=== PATIENT | male | born 1940 | race Caucasian/White ===

== ENCOUNTER 2023-12-20 11:20 | Emergency (ER) | payer OTHER, SELFPAY ==
--- NOTE | ~2023-12-20 | CT_ITS ---
EXAMINATION: CT abdomen pelvis wo con DATE: 12/20/2023 17:40 INDICATION: Left flank pain. TECHNIQUE: Computed tomography (CT) of the abdomen and pelvis was performed without intravenous contr ast. Automated exposure control and iterative reconstruction technique were employed. The dose-length product was 264.36 mGy-cm. COMPARISON: None. FINDINGS: The visualized portions of the lung bases demonstrate mild atelectasis. No pleural effusion . The heart size is normal. There are coronary artery calcifications. No pericardial effusion. The li joseph and spleen are normal. There are gallstones in the gallbladder, which is normal in size. The panc reas is normal. There is a 1 mm stone in right kidney. There is mild left hydronephrosis and hydroure ter. There is a 3 mm stone at left ureterovesicular junction. The prostate is severely enlarged. Ther e is diverticulosis of the colon without evidence of diverticulitis. There are no dilated loops of skinny wel. The appendix is not visualized. The rectosigmoid is mildly distended and stool-filled. There are no pathologically enlarged lymph nodes. There is no free intraperitoneal fluid. There is 6 mm lilliam listhesis of L4 and L5. There is severe lumbar spondylosis. IMPRESSION: 1. 3 mm stone at left ureterovesicular junction with mild left hydronephrosis and hydroureter. 2. 1 mm nonobstructing right kidney stone. Reviewed, dictated and finalized at location E. OL COORDINATOR IMPRESSION: 1. 3 mm stone at left ureterovesicular junction with mild left hydronephrosis a nd hydroureter. 2. 1 mm nonobstructing right kidney stone.
[2023-12-20 11:21] VITALS: BP 118/69; PULSE 70; RESP 18; TEMP 36.6; O2SAT 97
[2023-12-20 15:41] VITALS: BP 121/76; PULSE 73; RESP 18; O2SAT 98
[2023-12-20 16:13] LABS: Basophils Percent Auto 0.5 % (0.2-1.2); Eosinophils Absolute Auto 0.1 K/mm3 (0-0.3); Eosinophils Percent Auto 0.8 % (0-4.4); Hemoglobin 13.9 g/dL (14.0-18.0); Immature Granulocyte Absolute 0.03 K/mm3 (0.00-0.031); Immature Granulocyte Percent A 0.4 % (0-0.5); Lymphocytes Absolute Auto 1.77 K/mm3 (0.9-3.2); Lymphocytes Percent Auto 22.5 % (18.3-44.2); Mean Corpuscular HGB Conc 33.1 g/dl (32-36); Mean Corpuscular Volume 99.8 fl (80-100); Mean Platelet Volume 9.4 fl (7.4-10.4); Monocytes Absolute Auto 0.9 K/mm3 (0.1-0.6); Monocytes Percent Auto 11.7 % (2.6-8.5); Neutrophils Absolute Auto 5.1 K/mm3 (1.3-6.7); Neutrophils Percent Auto 64.1 % (45.5-73.1); Platelet Count Result 232 k/mm3 (150-375); Red Blood Count 4.21 M/mm3 (4.6-6.20); Red Cell Distribution Width 12.8 % (11.5-14.5); White Blood Count 7.9 K/mm3 (4.5-10.0)
[2023-12-20 16:24] LABS: Alanine Aminotransferase 17 U/L (6-50); Albumin Level 4.4 g/dL (3.5-5.1); Alkaline Phosphatase 89 U/L (38-126); Anion Gap 7 mmol/L (8-16); Aspartate Amino Transferase 24 U/L (17-59); Blood Urea Nitrogen 39 mg/dL (9-20); Calcium 9.3 mg/dL (8.4-10.2); Carbon Dioxide 28 mmol/L (22-30); Chloride 106 mmol/L (98-107); Estimated CRCL calculation 31 ml/min; Estimated Glomerular Filt Rate 48; Glucose 108 mg/dL (65-110); Lipase 58 U/L (23-300); Potassium 4.7 mmol/L (3.4-5.0); Sodium 141 mmol/L (137-145)
[2023-12-20 16:30] VITALS: BP 117/72; PULSE 73; RESP 16; O2SAT 98
--- NOTE | 2023-12-20 16:31 | ED.ABDPAIN ---
HPI - Abdominal Pain General Chief Complaint: Abdominal Pain Stated Complaint: kidney stone Time Seen by Provider: 12/20/23 16:02 History of Present Illness HPI narrative: 83-year-old male presenting to the emergency department for evaluation of left flank pain that radiates to the left lower quadrant. Patient states symptoms started on Monday and patient does have intermittent flank pain. Patient states he does believe he past a kidney stone a few months ago. Patient does have a read from an outpatient CT scan that showed a 3 mm calculus in the left kidney. At time of evaluation patient did have tenderness to his left CVA but patient declined any medications for pain control. Patient did have a colonoscopy and has no prior history of diverticular disease. Related Data Home Medications Medication Instructions Recorded Confirmed ciprofloxacin HCl 500 mg tablet mg 12/20/23 12/20/23 emtricitabine 200 mg-rilpivirine tablet PO 12/20/23 25 mg-tenofovir alafenam 25 mg tablet (Nitinsey) lisinopril 10 mg tablet mg 12/20/23 lovastatin 10 mg tablet mg 12/20/23 oxybutynin chloride 5 mg mg PO 12/20/23 tablet,extended release 24 hr sulfamethoxazole 800 tablet 12/20/23 mg-trimethoprim 160 mg tablet Allergies Allergy/AdvReac Type Severity Reaction Status Date / Time No Known Allergies Allergy Verified 12/20/23 18:33 Review of Systems Review of Systems: All systems reviewed & are unremarkable except as noted in HPI and below Exam Narrative: APPEARANCE: Well appearing, no pain, no distress, well-nourished. HEAD: normocephalic, atraumatic. EYES: PERRLA/EOMI, conjunctivae clear. NOSE: Normal no drainage NECK: Supple. No adenopathy, no masses. RESPIRATORY: Airway patent, respirations nonlabored. Clear to auscultation bilaterally, no rales, rhonchi, wheezing. CARDIOVASCULAR: Regular rate and rhythm without murmurs rubs or gallops. ABDOMINAL: Soft, nondistended, no left lower quadrant tenderness to palpation but did have left CVA tenderness to palpation MUSCULOSKELETAL: Moves all extremities. Strength/ROM intact, No edema, No calf tenderness. NEURO: Alert. Cranial nerves II through XII intact. Grossly intact SKIN: Warm, dry. Normal Color Course Course Emergency Course: 83-year-old male presenting to the ED for evaluation of left flank pain. Patient did have hematuria and CT scan without contrast is ordered to evaluate for kidney stone. Patient does have a 3 mm stone at the left UVJ. Patient was provided Flomax, [place] and Toradol in the emergency department. Patient will be discharged home with [place] Flomax and Zofran. Patient and family were updated on the results of the workup and plan for treatment at home and the importance of close follow-up with Urology. Patient was also updated on reasons to return to the emergency department. All questions concerns were addressed patient was well-appearing at time of discharge. Vital Signs Vital signs: Vital Signs Temperature 97.8 F 12/20/23 11:21 Pulse Rate 70 12/20/23 11:21 Respiratory Rate 18 12/20/23 11:21 Blood Pressure 118/69 12/20/23 11:21 Pulse Oximetry 97 12/20/23 11:21 Oxygen Delivery Room Air 12/20/23 11:21 Temperature 97.8 F 12/20/23 11:21 Pulse Rate 73 12/20/23 19:00 Respiratory Rate 16 12/20/23 19:00 Blood Pressure 119/67 12/20/23 19:00 Pulse Oximetry 97 12/20/23 19:00 Oxygen Delivery Room Air 12/20/23 11:21 MDM - Abdominal Pain Lab Data 12/20/23 16:05 12/20/23 16:05 Labs: Lab Results 12/20/23 12/20/23 Range/Units 16:05 16:51 WBC 7.9 (4.5-10.0) K/mm3 RBC 4.21 L (4.6-6.20) M/mm3 Hgb 13.9 L (14.0-18.0) g/dL Hct 42.0 (42.0-52.0) % MCV 99.8 (80-100) fl MCH 33.0 (26-34) pg MCHC 33.1 (32-36) g/dl RDW 12.8 (11.5-14.5) % Plt Count 232 (150-375) k/mm3 MPV 9.4 (7.4-10.4) fl Immature Gran % (Auto) 0.4 (0-0.5) % Neut % (Auto)
[2023-12-20 17:10] LABS: Appearance Urine Clear (Clear); Bacteria Urine None Seen /hpf; Bilirubin Urine Negative (Negative); Blood Urine 1+ (Negative); Color Urine Yellow (Yellow); Glucose Urine UA Negative (Negative); Ketones Urine Negative (Negative); Leukocyte Esterase Ur 1+ LEU/UL (Negative); Nitrate Urine Negative (Negative); Non Pathogenic Casts 0-2; Protein Urine 1+ mg/dL (Negative); RBC Urine 21-50 /hpf (0-2); Specific Grav Ur 1.023 (1.001-1.035); Squamous Epithelial Cell Urine None seen /hpf (Few); Urobilinogen Urine 0.2 mg/dL (<2.0)
[2023-12-20 17:17] LABS: Add Urine Microscopic? YES
[2023-12-20 17:30] VITALS: BP 108/69; PULSE 74; RESP 20; O2SAT 97
[2023-12-20 18:30] VITALS: BP 116/69; PULSE 78; RESP 16; O2SAT 97
[2023-12-20] MEDS: KETOROLAC 15 MG/ML VIAL (*BKC) IV PUSH (18:38)
[2023-12-20] MEDS: HYDROcodone/acetaminophen (*CRX) 5-325 MG TABLET 1 TAB PO (18:38)
[2023-12-20] MEDS: TAMSULOSIN HCL 0.4 MG CAPSULE PO (18:39)
[2023-12-20 19:00] VITALS: BP 119/67; PULSE 73; RESP 16; O2SAT 97
== END 2023-12-20 19:00 | disposition home or self-care (01) ==
PROVIDERS: Emergency Provider Emergency Medicine; PCP Family Medicine
DX: N20.1 Calculus of ureter (principal)
CPT/HCPCS: 36415; 74176; 80053; 81001; 83690; 85025; 87086; 96374; 99284; A9270; J1885

== ENCOUNTER 2024-03-21 10:26 | Emergency (ER) | payer MEDICARE, SELFPAY ==
--- NOTE | 2024-03-21 10:29 | ED.MALEGU ---
HPI - Male Genitourinary General Chief complaint: Urogenital-Male Stated complaint: urinary issue Time Seen by Provider: 03/21/24 11:05 Source: patient and RN notes reviewed Mode of arrival: ambulatory Limitations: no limitations History of Present Illness HPI Narrative: 83-year-old male presents with concern for suprapubic pressure. Reports he was treated for a urinary tract infection recently, reports his symptoms improved but did not resolve. He is not aware that they cultured his previous urine. He reports he had chills yesterday. He reports occasional difficulty with getting a urine strain started. Reports history of BPH. MD Complaint: other (Suprapubic pressure) Related Data Home Medications Medication Instructions Recorded Confirmed emtricitabine 200 mg-rilpivirine 1 tablet PO DAILY 12/20/23 03/21/24 25 mg-tenofovir alafenam 25 mg tablet (Brandon) lisinopril 10 mg tablet 10 mg PO DAILY 12/20/23 03/21/24 lovastatin 10 mg tablet 10 mg PO DAILY 12/20/23 03/21/24 oxybutynin chloride 5 mg 5 mg PO DAILY 12/20/23 03/21/24 tablet,extended release 24 hr alfuzosin 10 mg tablet,extended 10 mg PO DAILY 03/21/24 03/21/24 release 24 hr finasteride 5 mg tablet 5 mg PO DAILY 03/21/24 03/21/24 fluticasone propionate 50 See Rx Instructions .Route .COMPLEX 03/21/24 03/21/24 mcg/actuation nasal spray,suspension Allergies Allergy/AdvReac Type Severity Reaction Status Date / Time Penicillins Allergy Intermediate Hives Verified 03/21/24 11:10 Review of Systems Review of Systems: CONSTITUTIONAL: Denies malaise, sweats, or fever. Reports chills CARDIOVASCULAR: Denies chest pain, palpitations, or edema. RESPIRATORY: Denies cough or dyspnea. GASTROINTESTINAL: Denies abdominal pain, nausea, vomiting, diarrhea GENITOURINARY: Reports suprapubic pressure, difficulty with urine stream. Denies dysuria, frequency, urgency. Denies flank pain or hematuria. SKIN: Denies rash or itching. MUSCULOSKELETAL: Denies back pain or myalgia. All systems reviewed & are unremarkable except as noted in HPI and below PMFSH Comments At time of signature, agree with nursing past medical, surgical, social and family history. There is no relevant family history pertinent to the presenting complaint Exam Narrative: GENERAL: Well-appearing, well-nourished, and in no acute distress. HEAD: Normocephalic. EYES: PERRLA, conjunctivae clear. NECK: Supple. No lymphadenopathy CHEST: Clear to auscultation. No respiratory distress. HEART: Regular rate and rhythm. ABDOMEN: Soft, suprapubic tenderness, nondistended, normal active bowel sounds, no palpable or pulsatile masses, no guarding. No CVA tenderness SKIN: Warm, dry, no rash. NEURO: Alert and oriented x3. PSYCH: Normal mood and affect Course Course Emergency Course: Discussed UA with patient, discussed treatment options including waiting for urine culture versus treating now. Through shared decision making, it was decided to treat now pending culture mainly due to the possibility that his infection might be prostate related rather than urinary tract. Patient is aware of diagnosis, understands and agrees to treatment plan. Anticipatory guidance given. Patient agrees to follow-up as directed and is aware of reasons to seek care at the emergency department. Portions of this record may have been created with voice recognition software Level of Care: Express Care Visit Vital Signs Vital signs: Reviewed. MDM - Male Genitourinary MDM Narrative Medical decision making narrative: Exam findings and UA show no acute concerns or changes; patient is non-toxic appearing and is in no distress. Patient is appropriate for outpatient treatment and follow-up. Differential Diagnosis Differential diagnosis: Likely urinary tract infection and prostatitis Critical Care Time Critical Care Time Critical Care Time: No Discharge Plan Discharge Clinical Impression: Symptoms of urinary trac
[2024-03-21 10:38] VITALS: BP 132/58; PULSE 59; RESP 16; TEMP 37.2; O2SAT 99
[2024-03-21 10:40] VITALS: BP 132/58; PULSE 59; RESP 16; TEMP 37.2; O2SAT 99
== END 2024-03-21 11:26 | disposition home or self-care (01) ==
PROVIDERS: Emergency Provider Nurse Practitioner; PCP Family Medicine
DX: R10.30 Lower abdominal pain, unspecified (principal); E78.00 Pure hypercholesterolemia, unspecified; I10 Essential (primary) hypertension; N40.0 Benign prostatic hyperplasia without lower urinary tract symptoms; Z21 Asymptomatic human immunodeficiency virus [HIV] infection status
CPT/HCPCS: 81003; 87086; 99213; G0463

== ENCOUNTER 2024-11-03 18:48 | Emergency (ER) | payer MEDICARE, SELFPAY ==
--- NOTE | ~2024-11-03 | CT_ITS ---
Non-contrast CT scan of the Abdomen and Pelvis Clinical indication: Abdominal pain Technique: 2.5 mm axial scans were obtained through the abdomen and pelvis without intravenous or or al contrast. Dose reduction technique was used on this scan by utilizing automated exposure control a nd iterative reconstruction technique. The dose-length product (DLP) was 212.67 mGy-cm. COMPARISON: 12/20/2023 Findings: Images through the lung bases reveal no abnormalities. There is no evidence of renal or ureteral calculi. The kidneys and the ureters are nondilated. The liver, spleen, pancreas, and adrenals appear normal. Small gallstones are present. There is no ao rtic aneurysm. There is no evidence of bowel obstruction. Images through the pelvis were performed. There is no evidence of ascites or lymphadenopathy. Urinary bladder unremarkable. Prostate gland is significantly enlarged. Impression: No acute abnormality. Significant prostatomegaly. Cholelithiasis. Reviewed, dictated and finalized at [facility]. GER STAR Impression: No acute abnormality. Significant prostatomegaly. Cholelithiasis.
[2024-11-03 19:05] VITALS: BP 138/62; PULSE 84; RESP 18; TEMP 36.8; O2SAT 96
[2024-11-03 21:23] VITALS: TEMP 37.7
[2024-11-03 21:53] LABS: Add Urine Microscopic? YES; Appearance Urine Cloudy (Clear); Bacteria Urine 2+ /hpf; Bilirubin Urine Negative (Negative); Blood Urine Trace (Negative); Color Urine Yellow (Yellow); Glucose Urine UA Negative (Negative); Ketones Urine Negative (Negative); Leukocyte Esterase Ur 3+ LEU/UL (Negative); Need Manual Microscopic Reviewed; Nitrate Urine Positive (Negative); Non Pathogenic Casts 0-2; Protein Urine 1+ mg/dL (Negative); RBC Urine 0-2 /hpf (0-2); Specific Grav Ur 1.025 (1.001-1.035); Squamous Epithelial Cell Urine None Seen /hpf (Few); Urobilinogen Urine 0.2 mg/dL (<2.0); WBC Urine >100 /hpf (0-3); pH Urine 5.5 (5.0-9.0)
[2024-11-03 21:55] LABS: Budding Yeast Urine Present /hpf
[2024-11-03] MEDS: ACETAMINOPHEN 500 MG TABLET 1000 MG PO (22:34)
[2024-11-03 22:41] LABS: Basophils Absolute Auto 0.1 K/mm3 (0.0-0.1); Basophils Percent Auto 0.4 % (0.2-1.2); Eosinophils Absolute Auto 0.1 K/mm3 (0-0.3); Eosinophils Percent Auto 0.4 % (0-4.4); Hematocrit 41.4 % (42.0-52.0); Hemoglobin 14.7 g/dL (14.0-18.0); Immature Granulocyte Absolute 0.03 K/mm3 (0.00-0.031); Immature Granulocyte Percent A 0.2 % (0-0.5); Lymphocytes Absolute Auto 2.45 K/mm3 (0.9-3.2); Lymphocytes Percent Auto 18.3 % (18.3-44.2); Mean Corpuscular HGB Conc 35.5 g/dl (32-36); Mean Corpuscular Hemoglobin 34.3 pg (26-34); Mean Corpuscular Volume 96.7 fl (80-100); Mean Platelet Volume 10.1 fl (7.4-10.4); Monocytes Absolute Auto 1.6 K/mm3 (0.1-0.6); Monocytes Percent Auto 11.6 % (2.6-8.5); Neutrophils Absolute Auto 9.3 K/mm3 (1.3-6.7); Neutrophils Percent Auto 69.1 % (45.5-73.1); Platelet Count Result 184 k/mm3 (150-375); Red Blood Count 4.28 M/mm3 (4.6-6.20); Red Cell Distribution Width 12.3 % (11.5-14.5); White Blood Count 13.4 K/mm3 (4.5-10.0)
[2024-11-03 22:51] LABS: Anion Gap 7 mmol/L (4-12); Blood Urea Nitrogen 21 mg/dL (9-20); Calcium 9.4 mg/dL (8.4-10.2); Carbon Dioxide 25 mmol/L (22-30); Chloride 107 mmol/L (98-107); Estimated CRCL calculation 41 ml/min; Estimated Glomerular Filt Rate > 60; Glucose 120 mg/dL (65-110); Sodium 139 mmol/L (137-145)
[2024-11-03 23:00] VITALS: TEMP 36.7
[2024-11-03 23:53] VITALS: BP 121/73; PULSE 72; RESP 18; TEMP 36.7; O2SAT 96
--- NOTE | 2024-11-04 00:05 | ED_ITS ---
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 Patient reports history of previous UTIs, history of BPH. Reports having urinary frequency/urgency since yesterday, along with a low-grade fever. Reports having some suprapubic pain. Denies back pain. Denies nausea, vomiting. Denies hematuria. Does have history of 1 previous kidney stone. Related Data Home Medications Medication Instructions Recorded Confirmed emtricitabine 200 mg-rilpivirine 1 tablet PO DAILY 12/20/23 03/21/24 25 mg-tenofovir alafenam 25 mg tablet (Nitinsey) lisinopril 10 mg tablet 10 mg PO DAILY 12/20/23 03/21/24 lovastatin 10 mg tablet 10 mg PO DAILY 12/20/23 03/21/24 oxybutynin chloride 5 mg 5 mg PO DAILY 12/20/23 03/21/24 tablet,extended release 24 hr alfuzosin 10 mg tablet,extended 10 mg PO DAILY 03/21/24 03/21/24 release 24 hr finasteride 5 mg tablet 5 mg PO DAILY 03/21/24 03/21/24 fluticasone propionate 50 See Rx Instructions .Route .COMPLEX 03/21/24 03/21/24 mcg/actuation nasal spray,suspension Allergies Allergy/AdvReac Type Severity Reaction Status Date / Time Penicillins Allergy Intermediate Hives Verified 11/03/24 22:20 Review of Systems Review of Systems: All systems reviewed & are unremarkable except as noted in HPI. All systems reviewed & are unremarkable except as noted in HPI and below Exam Narrative: GENERAL: Well appearing, thin, non-toxic, in no acute distress. HEAD: Normocephalic, atraumatic. RESPIRATORY: Airway patent, respirations nonlabored. Clear to auscultation bilaterally, no rales, rhonchi, wheezing. CARDIOVASCULAR: Regular rate and rhythm ABDOMINAL: Soft, mild tenderness palpation over suprapubic region. Nondistended. Normoactive BS. No CVA tenderness to percussion. MUSCULOSKELETAL: Moves all extremities. No gross deformities. SKIN: Warm, dry, normal color. NEURO: A&O X3. Speech clear. PSYCHIATRIC: Appropriate mood and affect. Normal interaction. Course Vital Signs Vital signs: Vital Signs Temperature 98.2 F 11/03/24 19:05 Pulse Rate 84 11/03/24 19:05 Respiratory Rate 18 11/03/24 19:05 Blood Pressure 138/62 11/03/24 19:05 Pulse Oximetry 96 11/03/24 19:05 Oxygen Delivery Room Air 11/03/24 19:05 Temperature 98.0 F 11/03/24 23:53 Pulse Rate 72 11/03/24 23:53 Respiratory Rate 18 11/03/24 23:53 Blood Pressure 121/73 11/03/24 23:53 Pulse Oximetry 96 11/03/24 23:53 Oxygen Delivery Room Air 11/03/24 19:05 MDM - Male Genitourinary MDM Narrative Medical decision making narrative: Patient presented to ED with UTI symptoms with low-grade fever since yesterday. Patient's vitals are stable upon arrival here. He is afebrile here, temp borderline around 99degrees. UA appears infectious. Will treat. CBC with white blood cell count of 13.4. BMP is unremarkable. Stable kidney function. Normal electrolytes. CT scan of abdomen/pelvis was obtained to rule out stone or other obstructive process. Patient given Tylenol for borderline fever here. Also given 1st dose of Levaquin for UTI. He has tolerated this in the past. Prior to stat rad CT resulting, patient requesting to the facility due to wait time. Discussed that while I understand that wait times are frustrating, that I cannot rule out a surgical abnormality or septic stone without having the imaging resulted. Patient voiced understanding. He would still prefer to leave the facility at this time. Discussed that if he decides to leave, he would need to sign out against medical advice. Patient is agreeable to this. Paperwork was signed. Advised patient have close follow-up with PCP and Urology for further evaluation, given strict return precautions. Advised he can return at any time to resume evaluation. Levaquin sent to pharmacy. Left facility in stable condition. Medical Records Attestation: I reviewed the patient's medical records. Lab Data Attestation: I reviewed the patient's lab results. 11/03/24 22:30 11/03/24 22:30 Labs: Lab Results 11/03/24 11/03/24 Range/Units 21:00 22:30 WBC 13.4 H (4.5-10.0) K/mm3 RBC 4.28 L (4.6-6.20) M/mm3 Hgb 14.7 (14.0-18.0) g/dL Hct 41.4 L (42.0-52.0) % MCV 96.7 (80-100) fl MCH 34.3 H (26-34) pg MCHC 35.5 (32-36) g/dl RDW 12.3 (11.5-14.5) % Plt Count 184 (150-375) k/mm3 MPV 10.1 (7.4-10.4) fl Immature Gran % (Auto) 0.2 (0-0.5) % Neut % (Auto) 69.1 (45.5-73.1) % Lymph % (Auto) 18.3 (18.3-44.2) % Stephens % (Auto) 11.6 H (2.6-8.5) % Eos % (Auto) 0.4 (0-4.4) % Baso % (Auto) 0.4 (0.2-1.2) % Lymph # (Auto) 2.45 (0.9-3.2) K/mm3 Stephens # (Auto) 1.6 H (0.1-0.6) K/mm3 Eos # (Auto) 0.1 (0-0.3) K/mm3 Baso # (Auto) 0.1 (0.0-0.1) K/mm3 Abs Immat Gran (auto) 0.03 (0.00-0.031) K/mm3 Absolute Neuts (auto) 9.3 H (1.3-6.7) K/mm3 Absolute Nucleated RBC 0.000 (0.0-0.012) K/mm3 Nucleated RBC % 0.0 (0.0-0.2) % Sodium 139 (137-145) mmol/L Potassium 4.0 (3.4-5.0) mmol/L Chloride 107 (98-107) mmol/L Carbon Dioxide 25 (22-30) mmol/L Anion Gap 7 (4-12) mmol/L BUN 21 H D (9-20) mg/dL Creatinine 1.10 (0.7-1.3) mg/dL Estim Creat Clear Calc 41 ml/min Estimated GFR > 60 (59 - ) Glucose 120 H (65-110) mg/dL Calcium 9.4 (8.4-10.2) mg/dL Urine Color Yellow (Yellow) Urine Appearance Cloudy H (Clear) Urine pH 5.5 (5.0-9.0) Ur Specific [place] 1.025 (1.001-1.035) Urine Protein 1+ H (Negative) mg/dL Urine Glucose (UA) Negative (Negative) mg/dL Urine Ketones Negative (Negative) mg/dL Ur Blood (Man) Trace (Negative) Urine Nitrate Positive H (Negative) Urine Bilirubin Negative (Negative) Urine Urobilinogen 0.2 (<2.0) mg/dL Add Ur Microanalysis Reviewed Leukocyte Esterase Rfl 3+ H (Negative) AMANDA/UL Urine RBC 0-2 (0-2) /hpf Urine WBC >100 H (0-3) /hpf Ur Squamous Epith Cells None seen (Few) /hpf Urine Bacteria 2+ H /hpf Urine Casts 0-2 Urine Yeast (Budding) Present H (None) /hpf Imaging Data Attestation: I personally reviewed and interpreted this imaging study as fol lows: Discharge Plan Discharge Clinical Impression: Urinary tract infection Qualifiers: Urinary tract infection type: acute cystitis Hematuria presence: without hematuria Qualified Code(s): N30.00 - Acute cystitis without hematuria Patient Disposition: Left Against Medical Advice Condition: Stable Instructions: Antibiotic Form, Urinary Tract Infection in Men (ED) Additional Instructions: You are leaving the hospital against medical advice prior to your CT scan results. You may return at any time to resume evaluation. Take antibiotics as prescribed for urinary tract infection. Stay well hydr ated. Continue Tylenol as needed for pain. Follow-up with your primary care doctor/Urology for further evaluation. Return to the ED if you experience worsening or severe pain, difficulty urinating blood in urine, persistent fevers, unable to keep down food or drink, or any other symptoms of concern. Prescriptions: New levofloxacin 750 mg tablet 750 mg PO DAILY 7 Days Qty: 7 0RF No Action fluticasone propionate 50 mcg/actuation spray,suspension See Rx Instructions .ROUTE .COMPLEX Rx Instructions: Rx finasteride 5 mg tablet 5 mg PO DAILY alfuzosin 10 mg tablet extended release 24 hr 10 mg PO DAILY levofloxacin 750 mg tablet 750 mg PO DAILY 10 Days Qty: 10 0RF lovastatin 10 mg tablet 10 mg PO DAILY lisinopril 10 mg tablet 10 mg PO DAILY oxybutynin chloride 5 mg tablet extended release 24hr 5 mg PO DAILY O[place]sey 200-25-25 mg tablet 1 tablet PO DAILY tamsulosin [Flomax] 0.4 mg capsule 0.4 mg PO DAILY 10 Days Qty: 10 0RF Follow-up/Referrals: Lynne,Delfino Agudelo M.D. [Primary Care Provider] - Time of Disposition: 01:22
[2024-11-04] MEDS: levoFLOXacin 500 MG TABLET 750 MG PO (00:25)
--- NOTE | 2024-11-04 01:03 | PC.NURSE ---
Patient's visitor comes to desk to state patient wants to leave and is requesting to speak to the provider. PA notified.
--- NOTE | 2024-11-04 01:19 | PC.NURSE ---
Patient states he wants to leave now and does not want to wait anymore. PA notified and patient stating he will sign out AMA.
== END 2024-11-04 01:33 | disposition left against medical advice (07) ==
PROVIDERS: Student in an Organized Health Care Education/Training Program; Emergency Provider Physician Assistant; PCP Internal Medicine Infectious Disease
DX: N30.00 Acute cystitis without hematuria (principal)
CPT/HCPCS: 36415; 74176; 80048; 81001; 85025; 87086; 87181; 99284; A9270